=== PATIENT | male | born 1995 | race Caucasian/White ===

== ENCOUNTER 2024-03-29 08:45 | Emergency (ER) | payer BC ==
[2024-03-29 08:52] VITALS: BP 103/71; PULSE 60; RESP 17; TEMP 97.9; BMI 29.2
== END 2024-03-29 11:53 | disposition home or self-care (01) ==
LOC: JER 08:45
DX: G60.9 Hereditary and idiopathic neuropathy, unspecified (principal); R20.2 Paresthesia of skin; M54.2 Cervicalgia; G89.29 Other chronic pain
CPT/HCPCS: 93005; 93010; 99283-25

== ENCOUNTER 2024-10-24 23:04 | Emergency (ER) | payer BC ==
[2024-10-24 23:10] VITALS: BP 97/66; PULSE 64; RESP 18; TEMP 98.1; BMI 28.5
[2024-10-24] MEDS ORDERED: IBUPROFEN 600 MG TABLET (FP) PO ONE (23:27)
[2024-10-24] MEDS: IBUPROFEN 600 MG TABLET (FP) PO ONE (23:29)
== END 2024-10-24 23:33 | disposition home or self-care (01) ==
LOC: JERFT 23:04
DX: M62.830 Muscle spasm of back (principal); X50.1XXA Overexertion from prolonged static or awkward postures, initial encounter
CPT/HCPCS: 99283-25

== ENCOUNTER 2024-12-24 19:22 | Emergency (ER) | payer BC ==
[2024-12-24 19:37] VITALS: BP 104/64; PULSE 62; RESP 18; TEMP 97.9; BMI 28.5
[2024-12-24] MEDS ORDERED: METOCLOPRAMIDE HCL INJECTION 10 MG/2 ML VIAL ONE (20:41)
[2024-12-24] MEDS ORDERED: ACETAMINOPHEN INJECTION 100 ML ONE (20:41)
[2024-12-24] MEDS: SODIUM CHLORIDE 0.9% 500 ML INFUS.BAG IV ONE (20:57)
[2024-12-24] MEDS: ACETAMINOPHEN 1000 MG/100 ML BAG IVPB ONE (20:57)
[2024-12-24] MEDS: METOCLOPRAMIDE HCL INJECTION 10 MG/2 ML VIAL IVPB ONE (20:57)
[2024-12-24 22:46] LABS: HCV DIAGNOSTIC IN-HOUSE W/RFLX NON-REACTIVE (NONREACTIVE)
[2024-12-24 22:47] LABS: HIV INTERPRETATION NEGATIVE (NEGATIVE)
== END 2024-12-24 23:59 | disposition home or self-care (01) ==
LOC: JER 19:22
PROC: 3E033NZ Introduction of Analgesics, Hypnotics, Sedatives into Peripheral Vein, Percutaneous Approach (ICD-10-PCS; principal; 2024-12-24)
PROC: 3E033GC Introduction of Other Therapeutic Substance into Peripheral Vein, Percutaneous Approach (ICD-10-PCS; 2024-12-24)
DX: R51.9 Headache, unspecified (principal); R29.898 Other symptoms and signs involving the musculoskeletal system; R20.2 Paresthesia of skin; W22.09XA Striking against other stationary object, initial encounter; Y92.009 Unspecified place in unspecified non-institutional (private) residence as the place of occurrence of the external cause
CPT/HCPCS: 36415; 70450-TC; 86803; 87389; 99285-25